=== PATIENT | male | born 1980 | race Caucasian/White ===

== ENCOUNTER 2023-02-19 23:54 | Emergency (ER) | payer OTHER ==
[~2023-02-19] VITALS: Ht 182.9 cm; Wt 90.7 kg
--- NOTE | 2023-02-20 00:30 | NUR ---
Pt is noted on the unit alert, responsive as he came from home C/O SOB and history off left Arm surgery with pain Pump noted as pt can noted remenber medication on the pump that he is taken. Pt care continue.
[2023-02-20 00:51] LABS: HEMATOCRIT 41.6 % (36.7-47.1); MEAN CORPUSCULAR HEMOGLOBIN 31.1 uug (23.8-33.4); MEAN CORPUSCULAR VOLUME 93.1 fL (73.0-96.2); PLATELET COUNT (AUTO) 314 K/uL (152-348)
[2023-02-20 00:57] LABS: CARBON DIOXIDE 27 mmol/L (21-32); CHLORIDE 105 mmol/L (98-107); CREATININE 1.1 mg/dL (0.6-1.3); GLUCOSE 128 mg/dL (74-106); POTASSIUM 3.3 mmol/L (3.5-5.1); UREA NITROGEN, BLOOD 20 mg/dL (7-18)
[2023-02-20] MEDS ORDERED: AZIT250T13 PO (01:33)
--- NOTE | 2023-02-20 01:43 | NUR ---
Patient discharged to home in stable condition. Written and verbal after care instructions given. Patient verbalizes understanding of instructions. Stressed follow up or return to ER for worsening s/s. Patient is a/ox4, NAD noted. patient ambulated with steady gait, accompanied by relative
[2023-02-20 01:44] VITALS: BP 113/68
--- NOTE | 2023-02-20 01:44 | NUR ---
IV removed. Catheter intact and site benign. Pressure and 4x4 gauze applied to site. No bleeding noted.
== END 2023-02-20 01:45 | disposition home or self-care (01) ==
LOC: ER 02-20 00:01
DX: R06.02 Shortness of breath (principal); J98.11 Atelectasis; R07.89 Other chest pain; F17.210 Nicotine dependence, cigarettes, uncomplicated; Z91.018 Allergy to other foods; Z79.2 Long term (current) use of antibiotics
CPT/HCPCS: 36415; 71045; 84484; 85025; 93005; A4663